=== PATIENT | male | born 1930 | race Caucasian/White ===

== ENCOUNTER → 2016-08-25 | Outpatient (CLI) | payer MEDICARE, OTHER ==
[~2016-08-25] MED LIST: ASPIR-LOW81 MG PO; CALCIUM + D 6001 TA1 PO; CALCIUM1 CAP PO; CALTRATE-600 W600 MG PO; CARDIZEM 30MG T30 MG PO; CARDIZEM120 MG PO; CLOPIDOGREL PO; COUMADIN; COUMADIN 3MG3 MG/TAB PO; COUMADIN3 MG PO; DEMADEX 20MG20 M1 PO; DILTIA XT120 MG PO; DILTIAZEM30 MG PO; DIOVAN 80MG80 MG PO; DIOVAN PO; DIOVAN80 M1 PO; DIOVAN80 MG PO; ELIQUIS 5MG PO; FISH OIL 1000MG1 CAP PO; FISH OIL CONC1000 MG PO; FISH OIL CONCEN1 SG1 PO; FISH OIL CONCEN1 SG2 PO; FLAGYL250 MG PO; FLAGYL500 MG PO; FLOMAX; FLOMAX 0.40.4 MG/CAP PO; FLONASE NASAL S16 GM NS; FLONASE0.05 MG/AC NS; FLONASEALLERGY NS; FUROSEMIDE; INDERAL 20MG20 MG PO; K-LOR CON PO; KLOR-CON 1010 MEQ PO; KLOR-CON M2020 MEQ PO; LASIX 20MG TABL20 MG PO; LASIX 40MG TABL40 MG PO; MELATONIN5 M1 PO; MUCINEX 60600 MG/TA1 PO; MUCINEX 60600 MG/TAB PO; MUCINEX600 M1 PO; MYRBETR50MG PO; NIASPAN500 MG PO; NITROSTAT0.4 MG/TAB SL; PRILOSEC 20MG20 MG PO; PROPANOLOL PO; PROSCAR 5MG5 MG PO; PROTEIN PO; PROTONIX 40MG T40 MG PO; PROTONIX40 MG PO; SINGULAIR PO; SINGULAIR10 MG PO; UROXATRAL10 M1 PO; VICODIN 5/5001 UDTAB PO; VIT D; ZOCOR 20MG20 MG PO; ZOCOR PO; see list
== END ==
LOC: COL.LAB 07:54
PROVIDERS: Nurse Practitioner
DX: I25.10 Atherosclerotic heart disease of native coronary artery without angina pectoris (principal)

== ENCOUNTER 2018-03-18 09:19 | Day surgery (SDC) | payer MEDICARE, OTHER ==
[2009-06-20 12:05] VITALS: BP 129/89
[~2018-03-18] VITALS: Ht 182.9 cm; Wt 111.1 kg
[2018-03-18] MEDS ORDERED: PROAIR HFA0.09 MG/AC IH (09:48)
[2018-03-18] MEDS ORDERED: ASPIRIN 81M81 MG/TA2 PO (09:49)
[2018-03-18] MEDS ORDERED: ELIQUIS 5MG PO (09:49)
[2018-03-18] MEDS ORDERED: CALCIUM 600-D 61 TAB PO (09:49)
[2018-03-18] MEDS ORDERED: FLONASEALLERGY NS (09:50)
[2018-03-18] MEDS ORDERED: MUCINEX 60600 MG/TA1 PO (09:50)
[2018-03-18] MEDS ORDERED: KLOR-CON M2020 MEQ PO (09:51)
[2018-03-18] MEDS ORDERED: TOPROL XL 25MG25 MG PO (09:51)
[2018-03-18] MEDS ORDERED: MELATONIN5 M1 SL (09:51)
[2018-03-18] MEDS ORDERED: MYRBETR50MG PO (09:52)
[2018-03-18] MEDS ORDERED: SINGULAIR 110 MG/TAB PO (09:52)
[2018-03-18] MEDS ORDERED: NITROSTAT0.4 MG/TAB SL (09:53)
[2018-03-18] MEDS ORDERED: EPA FISH OIL1 SGL PO (09:53)
[2018-03-18] MEDS ORDERED: PRILOSEC 20MG20 MG PO (09:53)
[2018-03-18] MEDS ORDERED: ZOCOR 20MG20 MG PO (09:54)
[2018-03-18] MEDS ORDERED: FLOMAX 0.40.4 MG/CAP PO (09:55)
[2018-03-18] MEDS ORDERED: DEMADEX 20MG20 M1 PO (09:55)
[2018-03-18] MEDS ORDERED: DIOVAN 80MG80 MG PO (09:56)
[2018-03-18 10:11] VITALS: BP 142/69; PULSE 69; TEMP 97.7
[2018-03-18 12:00] VITALS: BP 119/53; PULSE 64; TEMP 97.6
[2018-03-18 12:15] VITALS: BP 123/60; PULSE 60
== END 2018-03-18 12:50 | disposition home or self-care (01) ==
LOC: SDCO 09:19
DX: Z12.11 Encounter for screening for malignant neoplasm of colon (principal); D12.3 Benign neoplasm of transverse colon; D12.5 Benign neoplasm of sigmoid colon; K57.30 Diverticulosis of large intestine without perforation or abscess without bleeding; E78.00 Pure hypercholesterolemia, unspecified; I48.91 Unspecified atrial fibrillation; K21.9 Gastro-esophageal reflux disease without esophagitis; Z88.8 Allergy status to other drugs, medicaments and biological substances; Z79.82 Long term (current) use of aspirin; Z79.51 Long term (current) use of inhaled steroids; Z86.010 Personal history of colon polyps
CPT/HCPCS: J2250; J3010

== ENCOUNTER → 2018-04-25 | Outpatient (CLI) | payer MEDICARE, OTHER ==
[2009-06-20 12:05] VITALS: BP 129/89
[~2018-04-25] VITALS: Ht 182.9 cm; Wt 110.8 kg
[~2018-04-25] MED LIST changes: +ASPIRIN 81M81 MG/TA2 PO; +CALCIUM 600-D 61 TAB PO; +EPA FISH OIL1 SGL PO; +MELATONIN5 M1 SL; +PROAIR HFA0.09 MG/AC IH; +SINGULAIR 110 MG/TAB PO; +TOPROL XL 25MG25 MG PO
[2018-04-25 13:15] VITALS: BP 162/74; PULSE 80
== END ==
LOC: COL.RAD 12:00
DX: C43.62 Malignant melanoma of left upper limb, including shoulder (principal)

== ENCOUNTER 2018-05-26 13:08 | Day surgery (SDC) | payer MEDICARE, OTHER ==
[2009-06-20 12:05] VITALS: BP 129/89
[~2018-05-26] VITALS: Ht 188 cm; Wt 110.4 kg
[2018-05-26 13:36] VITALS: BP 112/63; PULSE 62; TEMP 98.2
[2018-05-26 15:35] VITALS: BP 120/57; PULSE 68; TEMP 97.6
[2018-05-26 15:50] VITALS: BP 123/51; PULSE 60
[2018-05-26 16:05] VITALS: BP 123/68; PULSE 60
[2018-05-26 16:20] VITALS: BP 124/61; PULSE 60
== END 2018-05-26 17:12 | disposition home or self-care (01) ==
LOC: SDCO 13:08
DX: D12.5 Benign neoplasm of sigmoid colon (principal); K57.30 Diverticulosis of large intestine without perforation or abscess without bleeding; D48.5 Neoplasm of uncertain behavior of skin; K21.9 Gastro-esophageal reflux disease without esophagitis; I10 Essential (primary) hypertension; E78.00 Pure hypercholesterolemia, unspecified; G47.00 Insomnia, unspecified; I48.91 Unspecified atrial fibrillation; M19.90 Unspecified osteoarthritis, unspecified site; N40.0 Benign prostatic hyperplasia without lower urinary tract symptoms; J44.9 Chronic obstructive pulmonary disease, unspecified; G47.33 Obstructive sleep apnea (adult) (pediatric); E66.9 Obesity, unspecified; Z88.8 Allergy status to other drugs, medicaments and biological substances; Z79.01 Long term (current) use of anticoagulants; Z86.010 Personal history of colon polyps; Z79.82 Long term (current) use of aspirin; Z90.49 Acquired absence of other specified parts of digestive tract; Z85.820 Personal history of malignant melanoma of skin
CPT/HCPCS: J2704; J7120

== ENCOUNTER → 2019-05-04 | Emergency (ER) | payer MEDICARE, OTHER ==
[2009-06-20 12:05] VITALS: BP 129/89
[~2019-05-04] VITALS: Ht 188 cm; Wt 108.2 kg
[2019-05-04 14:08] VITALS: BP 131/60; PULSE 70; TEMP 98
== END ==
LOC: COL.ER 14:01
DX: S39.012A Strain of muscle, fascia and tendon of lower back, initial encounter (principal); I25.10 Atherosclerotic heart disease of native coronary artery without angina pectoris; I48.91 Unspecified atrial fibrillation; Z79.82 Long term (current) use of aspirin; Z79.51 Long term (current) use of inhaled steroids; W18.39XA Other fall on same level, initial encounter; Y92.239 Unspecified place in hospital as the place of occurrence of the external cause

== ENCOUNTER 2020-01-29 08:01 | Day surgery (SDC) | payer MEDICARE, OTHER ==
[2009-06-20 12:05] VITALS: BP 129/89
[~2020-01-29] VITALS: Ht 188 cm; Wt 110.3 kg
[~2020-01-29 08:01] MED LIST changes: -MELATONIN5 M1 SL; +MUCINEX FAST-M1 EA10 PO
[2020-01-29 08:49] LABS: INR 1.6 (0.8-3.0); POTASSIUM 3.4 mmol/L (3.4-5.0); PROTHROMBIN TIME 17.6 SECONDS (9.7-12.8)
[2020-01-29 09:15] VITALS: BP 127/64; PULSE 61; TEMP 98
[2020-01-29 09:24] LABS: THYROID STIMULATING HORMONE 2.29 uIU/mL (0.465-4.680)
[2020-01-29] MEDS ORDERED: CARDIZEM 30MG T30 MG PO (09:38)
[2020-01-29] MEDS ORDERED: INDERAL 20MG20 MG PO (09:40)
[2020-01-29] MEDS ORDERED: PROTEIN1 PDR PO (09:40)
[2020-01-29 11:00] VITALS: BP 98/51; PULSE 51
--- NOTE | 2020-01-29 11:00 | NUR ---
report from Rajani Wilson.
[2020-01-29 11:04] VITALS: BP 81/47; PULSE 60
[2020-01-29 11:15] VITALS: BP 106/46; PULSE 59
[2020-01-29 11:30] VITALS: BP 119/57; PULSE 61
[2020-01-29 11:45] VITALS: BP 115/45; PULSE 59
--- NOTE | 2020-01-29 11:57 | NUR ---
Discharge instructions given to pt.Pt verbalizes understanding.INT removed,catheter tip intact.
== END 2020-01-29 12:49 | disposition home or self-care (01) ==
LOC: COL.CAR 08:01
PROVIDERS: Internal Medicine Interventional Cardiology
DX: I48.19 Other persistent atrial fibrillation (principal); I08.1 Rheumatic disorders of both mitral and tricuspid valves; I25.10 Atherosclerotic heart disease of native coronary artery without angina pectoris; I10 Essential (primary) hypertension; I95.9 Hypotension, unspecified; I27.20 Pulmonary hypertension, unspecified; I87.2 Venous insufficiency (chronic) (peripheral); J44.9 Chronic obstructive pulmonary disease, unspecified; G47.33 Obstructive sleep apnea (adult) (pediatric); K21.9 Gastro-esophageal reflux disease without esophagitis; N40.0 Benign prostatic hyperplasia without lower urinary tract symptoms; E66.9 Obesity, unspecified; J34.89 Other specified disorders of nose and nasal sinuses; Z95.0 Presence of cardiac pacemaker; Z88.8 Allergy status to other drugs, medicaments and biological substances; Z79.82 Long term (current) use of aspirin; Z79.01 Long term (current) use of anticoagulants; Z80.9 Family history of malignant neoplasm, unspecified; Z82.3 Family history of stroke; Z95.5 Presence of coronary angioplasty implant and graft; Z68.31 Body mass index [BMI] 31.0-31.9, adult
CPT/HCPCS: J2704

== ENCOUNTER → 2020-07-24 | Outpatient (CLI) | payer MEDICARE, OTHER ==
[~2020-07-24] MED LIST changes: +PROTEIN1 PDR PO
[2020-07-24 17:05] LABS: HEMATOCRIT 40.5 % (42.0-52.0); HEMOGLOBIN 12.9 g/dl (13.5-18.0); MEAN CELL VOLUME 99 fl (80.0-100.0); MEAN CORPUSCULAR HEMOGLOBIN 32 pg (27.0-31.0); MEAN CORPUSCULAR HGB CONC 32 g/dl (33.0-37.0); MEAN PLATELET VOLUME 10.2 fl (7.4-10.4); PLATELET COUNT 161 K/mm3 (130-400); REDCELL DISTRIBUTION WIDTH-CV 14.1 % (11.5-14.5)
[2020-07-24 17:14] LABS: INR 1.7 (0.8-3.0); PROTHROMBIN TIME 18.8 SECONDS (9.7-12.8)
[2020-07-24 17:34] LABS: ALANINE AMINOTRANSFERASE 26 U/L (4-49); ALBUMIN 3.3 gm/dL (3.5-5.0); ALKALINE PHOSPHATASE 116 U/L (50-136); ANION GAP 10 mmol/L (7-16); AST,SGOT 56 U/L (15-37); BILIRUBIN UNCONJUGATED 0.4 mg/dL (0.0-1.1); BILIRUBIN,DIRECT 0.1 mg/dL (0.0-0.4); BILIRUBIN,TOTAL 0.5 mg/dL (0.0-1.0); BLOOD UREA NITROGEN 25 mg/dL (9-20); CALCIUM 8.3 mg/dL (8.4-10.2); CARBON DIOXIDE 23 mmol/L (22-30); CHLORIDE 105 mmol/L (98-107); CREATININE, serum 1.21 (0.66-1.25); GLUCOSE 117 mg/dL (74-106); POTASSIUM 3.7 mmol/L (3.4-5.0); SODIUM 138 mmol/L (137-145); TOTAL PROTEIN 8.5 gm/dL (6.4-8.2)
[2020-07-24 17:48] LABS: C-REACTIVE PROTEIN < 0.5 mg/dL (0.0-0.9); TROPONIN-I < 0.012 ng/mL (0.000-0.035)
[2020-07-24 17:57] LABS: ERYTHROCYTE SEDIMENTATION RATE 34 mm/hr (0-30)
== END ==
LOC: COL.LAB
PROVIDERS: Nurse Practitioner
DX: Z03.89 Encounter for observation for other suspected diseases and conditions ruled out (principal); I95.9 Hypotension, unspecified; I25.10 Atherosclerotic heart disease of native coronary artery without angina pectoris